=== PATIENT | male | born 1995 | race Two or more races ===

== ENCOUNTER 2020-09-21 05:54 | Day surgery (SDC) | payer OTHER ==
[~2020-09-21 05:54] MED LIST: NO TOMA MEDICAMENTO
== END 2020-09-21 14:15 | disposition home or self-care (01) ==
LOC: CIR.AMB 05:54
PROVIDERS: ATTEND Specialist
DX: K40.90 Unilateral inguinal hernia, without obstruction or gangrene, not specified as recurrent (principal); Z20.828 Contact with and (suspected) exposure to other viral communicable diseases

== ENCOUNTER 2022-10-18 12:58 | Emergency (ER) | payer OTHER ==
[~2022-10-18] VITALS: Ht 167.6 cm; Wt 79.4 kg
== END 2022-10-18 17:23 | disposition home or self-care (01) ==
LOC: ER 12:58
DX: S62.635A Displaced fracture of distal phalanx of left ring finger, initial encounter for closed fracture (principal); S50.312A Abrasion of left elbow, initial encounter; S50.311A Abrasion of right elbow, initial encounter; V29.99XA Rider (driver) (passenger) of other motorcycle injured in unspecified traffic accident, initial encounter; Y93.55 Activity, bike riding; Y92.413 State road as the place of occurrence of the external cause; S80.212A Abrasion, left knee, initial encounter; S80.211A Abrasion, right knee, initial encounter; Z91.012 Allergy to eggs; Z91.018 Allergy to other foods